=== PATIENT | female | born 1990 | race Two or more races ===

== ENCOUNTER 2017-10-29 08:34 | Emergency (ER) | payer MEDICAID, OTHER ==
[2017-10-29] MEDS ORDERED: Sodium Chloride 0.9% 1,000 ML IV STA (08:51)
[2017-10-29] MEDS ORDERED: Ondansetron 4 MG/2 ML SDV IVPUSH STA (08:51)
--- NOTE | 2017-10-29 09:12 | EDM.PDOC ---
ED HPI GENERAL MEDICAL PROBLEM - General Chief Complaint: Neck Problem Stated Complaint: PAIN IN NECK AND BACK Time Seen by Provider: 10/29/17 11:16 - History of Present Illness INITIAL COMMENTS - FREE TEXT/NARRATIVE: HISTORY AND PHYSICAL: History of present illness: Patient 27-year-old female presents I'm concerned of generalized body aches and sore throat cough congestion neck pain back pain she's had nausea with vomiting denies abdominal pain denies vaginal discharge or urinary symptoms other complaints she was not immunized for influenza this year. Review of systems: As per history of present illness and below otherwise all systems reviewed and negative. Past medical history: As per history of present illness and as reviewed below otherwise noncontributory. Surgical history: As per history of present illness and as reviewed below otherwise noncontributory. Social history: No reported history of drug or alcohol abuse. Family history: As per history of present illness and as reviewed below otherwise noncontributory. Physical exam: HEENT: Atraumatic, normocephalic, pupils reactive, negative for conjunctival pallor or scleral icterus, mucous membranes moist, throat clear, neck supple, nontender, trachea midline. Lungs: Clear to auscultation, breath sounds equal bilaterally, chest nontender. Heart: S1S2, regular, negative for clicks, rubs, or JVD. Abdomen: Soft, nondistended, nontender. Negative for masses or hepatosplenomegaly. Negative for costovertebral tenderness. Pelvis: Stable nontender. Genitourinary: Deferred. Rectal: Deferred. Extremities: Atraumatic, negative for cords or calf pain. Neurovascular unremarkable. Neuro: Awake, alert, oriented. Cranial nerves II through XII unremarkable. Cerebellum unremarkable. Motor and sensory unremarkable throughout. Exam nonfocal. Diagnostics: CBC CMP chest x-ray influenza screen rapid strep hCG Therapeutics: Normal saline 1 L bolus Zofran 4 mg IV Impression: #1 viral syndrome Definitive disposition and diagnosis as appropriate pending reevaluation and review of above. Right Neck Pain Score (Numeric/FACES): 8 - Related Data Allergies Allergy/AdvReac Type Severity Reaction Status Date / Time No Known Allergies Allergy Verified 10/29/17 08:46 Home Meds: Home Meds . 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 lost baby at 30 wks 2 mos ago". Neurological History: Reports: Migraines Psychiatric History: Reports: Anxiety, Depression - Past Surgical History Female Surgical History: Reports: Section, Cervical Conization, D&C , Endometrial Ablation Other Female Surgeries/Procedures: laparoscopy, laparotomy Social & Family History - Family History Family Medical History: Noncontributory HEENT: Reports: None Cardiac: Reports: Hypertension, VT, Prior Cardiac Arrest Respiratory: Reports: COPD GI: Reports: Colon Polyps Neurological: Reports: CVA Endocrine/Metabolic: Reports: Diabetes, type II Oncologic: Reports: Breast - Tobacco Use Smoking Status *Q: Never Smoker Second Hand Smoke Exposure: No - Caffeine Use Caffeine Use: Reports: None - Recreational Drug Use Recreational Drug Use: No ED ROS GENERAL - Review of Systems Review Of Systems: ROS reveals no pertinent complaints other than HPI. ED EXAM, GENERAL - Physical Exam Exam: See Below Course - Vital Signs Last Recorded V/S: Last Vital Signs Temp 37.5 C 10/29/17 09:14 Pulse 81 10/29/17 09:14 Resp 20 10/29/17 09:14 BP 128/91 H 10/29/17 09:14 Pulse Ox 99 10/29/17 09:14 - Orders/Labs/Meds Orders: Active Orders 24 hr Category Date Time Status Chest 2V [CR] Stat Exams 10/29/17 08:51 Taken CULTURE STREP A CONFIRMATION [RM] Stat Lab 10/29/17 09:12 Results STREP SCRN A RAPID W CULT CONF [RM] Stat Lab 10/29/17 09:12 Results Labs: Laboratory Tests 10/29/17 10/29/17 10/29/17 Range/Units 09:05 09:05 09:30 WBC 6.73 (4.0-11.0) K/uL RBC 4.63 (4.30-5.90) M/uL Hgb 14.3 (12.0-16.0) g/dL Hct 41.7 (36.0-46.0) % MCV 90.1 (80.0-98.0) fL MCH 30.9 (27.0-32.0) pg MCHC 34.3 (31.0-37.0) g/dL RDW Std Deviation 44.5 (28.0-62.0) fl RDW Coeff of Isha 14 (11.0-15.0) % Plt Count 248 (150-400) K/uL MPV 10.00 (7.40-12.00) fL Neut % (Auto) 66.6 (48.0-80.0) % Lymph % (Auto) 24.2 (16.0-40.0) % Mcpherson % (Auto) 6.4 (0.0-15.0) % Eos % (Auto) 2.5 (0.0-7.0) % Baso % (Auto) 0.3 (0.0-1.5) % Neut # (Auto) 4.5 (1.4-5.7) K/uL Lymph # (Auto) 1.6 (0.6-2.4) K/uL Mcpherson # (Auto) 0.4 (0.0-0.8) K/uL Eos # (Auto) 0.2 (0.0-0.7) K/uL Baso # (Auto) 0.0 (0.0-0.1) K/uL Nucleated RBC % 0.0 /100WBC Nucleated RBCs # 0 K/uL Sodium 137 (136-146) mmol/L Potassium 4.0 (3.5-5.1) mmol/L Chloride 107 (98-110) mmol/L Carbon Dioxide 21 (21-31) mmol/L BUN 9 (6.0-23.0) mg/dL Creatinine 0.7 (0.6-1.5) mg/dL Est Cr Clr Drug Dosing 85.18 mL/min Estimated GFR (MDRD) > 60.0 ml/min Glucose 93 (60-110) mg/dL Calcium 9.3 (8.8-10.8) mg/dL Total Bilirubin 0.3 (0.1-1.5) mg/dL AST 28 (5-40) IU/L ALT 25 (8-54) IU/L Alkaline Phosphatase 66 (40-150) Total Protein 8.3 H (6.0-8.0) g/dL Albumin 4.2 (3.5-5.0) g/dL Globulin 4.1 H (2.0-3.5) g/dL Albumin/Globulin Ratio 1.0 L (1.3-2.8) Urine HCG, Qual NEGATIVE (NEGATIVE) Meds: Medications Discontinued Medications Generic Name Dose Route Start Last Admin Trade Name Stephanie PRN Reason Stop Dose Admin Diphenhydramine HCl 50 mg 10/29/17 11:12 Benadryl IVPUSH 10/29/17 11:13 ONETIME ONE Sodium Chloride 1,000 mls @ 999 mls/hr 10/29/17 08:51 10/29/17 09:17 Normal Saline IV 10/29/17 09:51 999 mls/hr NOW STA Administration Ketorolac Tromethamine 30 mg 10/29/17 10:04 10/29/17 10:08 Toradol IVPUSH 10/29/17 10:05 30 mg ONETIME ONE Administration Ondansetron HCl 4 mg 10/29/17 08:51 10/29/17 09:17 Zofran IVPUSH 10/29/17 08:52 4 mg NOW STA Administration Departure - Departure Time of Disposition: 11:16 Disposition: Home, Self-Care 01 Condition: Good Clinical Impression: Viral syndrome, Anxiety - Discharge Information Referrals: PCP,None [Primary Care Provider] - Forms: ED Department Discharge Additional Instructions: The following information is given to patients seen in the emergency department who are being discharged to home. This information is to outline your options for follow-up care. We provide all patients seen in our emergency department with a follow-up referral. The need for follow-up, as well as the timing and circumstances, are variable depending upon the specifics of your emergency department visit. If you don't have a primary care physician on staff, we will provide you with a referral. We always advise you to contact your personal physician following an emergency department visit to inform them of the circumstance of the visit and for follow-up with them and/or the need for any referrals to a consulting specialist. The emergency department will also refer you to a specialist when appropriate. This referral assures that you have the opportunity for followup care with a specialist. All of these measure are taken in an effort to provide you with optimal care, which includes your followup. Under all circumstances we always encourage you to contact your private physician who remains a resource for coordinating your care. When calling for followup care, please make the office aware that this follow-up is from your recent emergency room visit. If for any reason you are refused follow-up, please contact the [facility] emergency department at and asked to speak to the emergency department charge nurse. Motrin/Tylenol as directed follow-up primary medical doctor 1-2 days return as needed as discussed - My Orders Last 24 Hours: My Active Orders 10/29/17 08:51 Chest 2V [CR] Stat 10/29/17 09:12 CULTURE STREP A CONFIRMATION [RM] Stat STREP SCRN A RAPID W CULT CONF [RM] Stat - Assessment/Plan Last 24 Hours: My Active Orders 10/29/17 08:51 Chest 2V [CR] Stat 10/29/17 09:12 CULTURE STREP A CONFIRMATION [RM] Stat STREP SCRN A RAPID W CULT CONF [RM] Stat
[2017-10-29 09:51] LABS: CHLORIDE,CL 107 mmol/L (98-110); SODIUM,NA 137 mmol/L (136-146)
[2017-10-29] MEDS ORDERED: Ketorolac 30 MG/ML SDV IVPUSH ONE (10:04)
[2017-10-29] MEDS ORDERED: diphenhydrAMINE 50 MG/ML SDV IVPUSH ONE (11:12)
[2017-10-29 11:43] VITALS: BP 148/105
--- NOTE | 2017-10-29 15:39 | CR ---
EXAM DATE: 10/29/17 PATIENT'S AGE: 27 Patient: SHARRI IRWIN Facility: [place], [place] Site . Site : [id number] Study: XRay Chest [id number]/28/2017 10:44:12 AM Ordering Physician: Doctor Patten Final Report: INDICATION: Right upper neck and upper chest pain. Pt states she woke up this morning with severe head and neck pain. FINDINGS: PA and lateral chest x-rays show a normal cardiac silhouette. The lungs show no focal pulmonary opacities. Sharp pleural margins. No pneumothorax. IMPRESSION: No evidence of acute pulmonary abnormalities. Dictated by Lebron Hernández MD @ 10/29/2017 11:22:15 AM Dictated by: Lebron Hernández MD @ 10/29/2017 11:22:21 (Electronic Signature) Report Signed by Proxy. BISI
== END 2017-10-29 11:31 | disposition home or self-care (01) ==
LOC: MW.ED 08:34
DX: B34.9 Viral infection, unspecified (principal); F41.9 Anxiety disorder, unspecified
CPT/HCPCS: 71020; 80053; 81025; 85025; 87081; 87804; 87880; 96361; 96374; 96375; 99284; J1200; J1885; J2405; J7040